=== PATIENT | male | born 1980 | race Caucasian/White ===

== ENCOUNTER 2017-10-21 11:38 | Emergency (ER) | payer SELFPAY ==
--- NOTE | 2017-10-21 11:43 | ER Report ---
History and Physical Time Seen By MD: 11:42 HPI/ROS CHIEF COMPLAINT: Chest pain and shortness of breath HISTORY OF PRESENT ILLNESS: This is a 37-year-old male who presents to the emergency department for chest pain and shortness of breath. 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 Patient states that he did retreat to a lower elevation, here in [place] at 7200 feet he does feel mildly better however he still has a headache, intermittent nausea with one episode of vomiting. Patient also states that he still has some left-sided chest discomfort more localized to the left side of the chest midaxillary, and also feels somewhat dyspneic more exertional. Patient denies fevers, chills, visual changes, dysuria or rashes. REVIEW OF SYSTEMS: Constitutional: No fever, no chills. Eyes: No discharge. ENT: No sore throat. Cardiovascular: As above. Respiratory: As above. Gastrointestinal: As above. Genitourinary: No hematuria. Musculoskeletal: No back pain. Skin: No rashes. Neurological: As above. Allergies: Coded Allergies: No Known Drug Allergies (Unverified , 10/21/17) Home Meds Reported Medications Hydrochlorothiazide (HYDROCHLOROTHIAZIDE) 25 Mg Tablet, 1 TAB PO QDAY, TAB 10/21/17 Past Medical/Surgical History The patient has a past medical and surgical history of migraines secondary to hypertension, hypertension, hypercholesterolemia, IBS, left arm fracture, left leg fracture, right collarbone fracture. Reviewed Nurses Notes: Yes Constitutional Vital Sign - Last 24 Hours 10/21/17 10/21/17 10/21/17 10/21/17 11:38 11:41 11:41 11:53 Temp 97.8 Pulse ??? 112 102 Resp 20 9 B/P (MAP) 152/115 152/115 (127) Pulse Ox 98 99 O2 Delivery Room Air 10/21/17 10/21/17 10/21/17 10/21/17 12:00 12:08 12:17 12:22 Pulse 97 ??? Resp 12 B/P (MAP) 164/113 (130) 150/94 (112) Pulse Ox 94 10/21/17 10/21/17 10/21/17 10/21/17 12:30 12:36 12:36 12:37 Pulse 71 82 Resp 16 10 B/P (MAP) 138/91 (107) Pulse Ox 95 100 O2 Delivery Room Air 10/21/17 10/21/17 10/21/17 10/21/17 12:42 12:45 12:52 13:00 Pulse 78 79 Resp 16 21 B/P (MAP) 146/102 (117) 142/93 (109) Pulse Ox 97 10/21/17 10/21/17 10/21/17 10/21/17 13:05 13:15 13:32 13:35 Pulse 84 76 Resp 14 25 B/P (MAP) 141/92 (108) 137/92 (107) Pulse Ox 97 97 10/21/17 10/21/17 10/21/17 10/21/17 13:45 13:50 14:00 14:05 Pulse 69 79 Resp 6 19 B/P (MAP) 130/90 (103) 131/89 (103) Pulse Ox 96 96 10/21/17 10/21/17 14:15 14:20 Pulse 98 Resp 15 B/P (MAP) 155/100 (118) Pulse Ox 99 Physical Exam General Appearance: The patient is alert, has no immediate need for airway protection and no signs of toxicity, appears mildly anxious. Eyes: Pupils equal and round no pallor or injection. ENT, Mouth: Mucous membranes are moist. Respiratory: There are no retractions, lungs are clear to auscultation. Cardiovascular: Regular rate and rhythm, no murmurs, clicks or rubs. Gastrointestinal: Abdomen is soft and non tender, no masses, bowel sounds normal. Neurological: Alert and oriented 4. Moving all extremities. Following all commands. No focal deficits. Cranial nerves II through XII intact. Skin: Warm and dry, no rashes. Hands are cold and clammy. Musculoskeletal: Neck is supple non tender. Extremities are nontender, nonswollen and have full range of motion. DIFFERENTIAL DIAGNOSIS: After history and physical exam differential diagnosis was considered for chest pain including but not limited to myocardial ischemia, pericarditis pulmonary embolus, chest wall pain, pleural inflammation and pulmonary infectious causes.shortness of breath including but not limited to pulmonary infectious process, COPD, asthma, pulmonary embolus and congestive heart failure. Medical Decision Making Data Points Result Diagram: 10/21/17 1150 10/21/17 1150 Laboratory Hematology Test 10/21/17 11:50 Red Blood Count 6.21 M/uL (4.00-5.60) Mean Corpuscular Volume 82.7 fL (80.0-96.0) Mean Corpuscular Hemoglobin 28.4 pg (26.0-33.0) Mean Corpuscular Hemoglobin Concent 34.4 g/dL (32.0-36.0) Red Cell Distribution Width 13.0 % (11.5-14.5) Mean Platelet Volume 7.6 fL (7.2-11.1) Neutrophils (%) (Auto) 78.0 % (39.4-72.5) Lymphocytes (%) (Auto) 15.6 % (17.6-49.6) Monocytes (%) (Auto) 5.7 % (4.1-12.4) Eosinophils (%) (Auto) 0.5 % (0.4-6.7) Basophils (%) (Auto) 0.2 % (0.3-1.4) Nucleated RBC Relative Count (auto) 0.1 /100WBC Neutrophils # (Auto) 9.3 K/uL (2.0-7.4) Lymphocytes # (Auto) 1.9 K/uL (1.3-3.6) Monocytes # (Auto) 0.7 K/uL (0.3-1.0) Eosinophils # (Auto) 0.1 K/uL (0.0-0.5) Basophils # (Auto) 0.0 K/uL (0.0-0.1) Nucleated RBC Absolute Count (auto) 0.01 K/uL D-Dimer Quantitative (PE/DVT) < 0.27 ug/ml (0-0.50) Sodium Level 142 mmol/L (137-145) Potassium Level 3.5 mmol/L (3.5-5.0) Chloride Level 103 mmol/L (98-107) Carbon Dioxide Level 25 mmol/L (22-30) Blood Urea Nitrogen 19 mg/dl (9-21) Creatinine 1.10 mg/dl (0.66-1.25) Glomerular Filtration Rate Calc > 60.0 Random Glucose 101 mg/dl (75-110) Calcium Level 9.8 mg/dl (8.4-10.2) Total Bilirubin 0.6 mg/dl (0.2-1.3) Aspartate Amino Transf (AST/SGOT) 35 U/L (0-35) Alanine Aminotransferase (ALT/SGPT) 44 U/L (0-56) Alkaline Phosphatase 95 U/L (0-126) Troponin I < 0.012 ng/ml B-Type Natriuretic Peptide < 5 pg/ml (0-100) Total Protein 7.9 gm/dl (6.3-8.2) Albumin 4.5 g/dl (3.5-5.0) Chemistry Test 10/21/17 11:50 White Blood Count 11.9 k/uL (4.5-11.0) Red Blood Count 6.21 M/uL (4.00-5.60) Hemoglobin 17.7 g/dL (14.0-18.0) Hematocrit 51.4 % (42.0-52.0) Mean Corpuscular Volume 82.7 fL (80.0-96.0) Mean Corpuscular Hemoglobin 28.4 pg (26.0-33.0) Mean Corpuscular Hemoglobin Concent 34.4 g/dL (32.0-36.0) Red Cell Distribution Width 13.0 % (11.5-14.5) Platelet Count 348 K/uL (150-450) Mean Platelet Volume 7.6 fL (7.2-11.1) Neutrophils (%) (Auto) 78.0 % (39.4-72.5) Lymphocytes (%) (Auto) 15.6 % (17.6-49.6) Monocytes (%) (Auto) 5.7 % (4.1-12.4) Eosinophils (%) (Auto) 0.5 % (0.4-6.7) Basophils (%) (Auto) 0.2 % (0.3-1.4) Nucleated RBC Relative Count (auto) 0.1 /100WBC Neutrophils # (Auto) 9.3 K/uL (2.0-7.4) Lymphocytes # (Auto) 1.9 K/uL (1.3-3.6) Monocytes # (Auto) 0.7 K/uL (0.3-1.0) Eosinophils # (Auto) 0.1 K/uL (0.0-0.5) Basophils # (Auto) 0.0 K/uL (0.0-0.1) Nucleated RBC Absolute Count (auto) 0.01 K/uL D-Dimer Quantitative (PE/DVT) < 0.27 ug/ml (0-0.50) Glomerular Filtration Rate Calc > 60.0 Calcium Level 9.8 mg/dl (8.4-10.2) Total Bilirubin 0.6 mg/dl (0.2-1.3) Aspartate Amino Transf (AST/SGOT) 35 U/L (0-35) Alanine Aminotransferase (ALT/SGPT) 44 U/L (0-56) Alkaline Phosphatase 95 U/L (0-126) Troponin I < 0.012 ng/ml B-Type Natriuretic Peptide < 5 pg/ml (0-100) Total Protein 7.9 gm/dl (6.3-8.2) Albumin 4.5 g/dl (3.5-5.0) Coagulation Test 10/21/17 11:50 D-Dimer Quantitative (PE/DVT) < 0.27 ug/ml EKG/Imaging EKG Interpretation 12 lead EKG: Time of EKG 1144. Rhythm: Sinus tachycardia, ventricular rate 104 bpm. [place]: normal QRS: normal ST segments: No ST depression or elevation identified. Imaging Location: [facility] - [place] Patient: Johnson Sotomayor : 1980 Visit/Account:[id number] Date of Sevice: 10/21/2017 CHEST PA AND LAT HISTORY: Chest pain. COMPARISON: None FINDINGS: Cardiomediastinal contours: The heart size is normal. Lungs and pleura: There is no finding of an infiltrate, lymphadenopathy or pleural effusion. Bones/soft tissues: There are no findings of a fracture. IMPRESSION: Normal chest x-ray without findings of acute disease. Report Dictated By: Rebel Hodge MD at 10/21/2017 12:47 PM Report E-Signed By: Rebel Hodge MD at 10/21/2017 12:47 PM WSN:[facility] ED Course/Re-evaluation Clinical Indication for ER IV: Hydration, IV Access ED Course The patient was admitted to room. Extremities were obtained. Differential diagnoses were considered. An IV was started. A CBC, CMP, d-dimer, troponin and BNP were obtained. Lab studies unremarkable, negative d-dimer, negative troponin , negative BNP. The patient was given a 1 L normal saline bolus. Try a 0.4 no change in the patient's symptoms. Did increase the patient's headache, after the lab studies came back to give the patient 30 mg IV Toradol which did seem to help with his discomfort, he was also given 25 mg IV Benadryl. Patient was also given 4 mg IV Zofran 2, 324 mg baby aspirin. Did trial a DuoNeb which did seem to provide some relief. 2 view chest x-ray was negative for any acute cardio pulmonary process. EKG sinus tachycardia no other abnormalities. I did review these results with the patient he was relieved with the lab studies the chest x-ray. The patient I talked about increasing the dose on his chlorothiazide from 1 tablet a day to the 1 tablet twice a day, the patient states he would rather wait to follow-up with his primary care provider when he returns to [place] on he said this is okay however. Come back for any other concerns he concerning to this. The patient had no other questions or concerns at this time and was discharged home. I also did tell the patient that the only real solution for altitude sickness is retreating to a lower elevation. Patient did express understanding. The patient's blood pressure did improve while in the emergency department, last blood pressure when I was in the room was 130/89. Heart rate around 90-95. Decision to Disposition Date: October 21, 2017 Decision to Disposition Time: 14:21 Depart Departure Latest Vital Signs Vital Signs Date Time Temp Pulse Resp B/P (MAP) Pulse Ox O2 Delivery O2 Flow Rate FiO2 10/21/17 14:20 98 15 99 10/21/17 14:15 155/100 (118) 10/21/17 12:36 Room Air 10/21/17 11:41 97.8 Impression: Primary Impression: Hypertension Additional Impression: Altitude sickness Condition: Improved Disposition: HOME OR SELF-CARE Patient Instructions: Hypertension (ED), Mountain Sickness (ED) Additional Instructions: Drink plenty of fluids. Get plenty of rest. Continue taking your hydrochlorothiazide as directed. Be sure to follow-up with your primary care provider when he returns to [place]. I do believe that there is a mountain sickness components here or hypertension therefore retreating to a lower elevation is recommended. Considered talking to your primary care provider about alternatives to hydrochlorothiazide. If you need to return to the emergency department before he returned to [place] for any other concerns or worsening symptoms please do so. Problem Qualifiers Primary Impression: Hypertension Hypertension type: essential hypertension Qualified Codes: I10 - Essential ( primary) hypertension Additional Impression: Altitude sickness Encounter type: initial encounter Qualified Codes: T70.29XA - Other effects of high altitude, initial encounter CHERIE JOLLY- October 21, 2017 11:43
[2017-10-21] MEDS ORDERED: HYDR-2966 PO (11:45)
[2017-10-21] MEDS ORDERED: NS(*) 0.9% 1000 ML BAG 1,000 ML IV ONE (12:02)
[2017-10-21] MEDS ORDERED: NITROGLYCERIN 0.4 MG SUBL SL ONE (12:05)
[2017-10-21] MEDS ORDERED: ONDANSETRON 4 MG/2 ML VIAL IVP ONE ×2 (12:05→13:20)
[2017-10-21] MEDS ORDERED: ASPIRIN 81 MG CHEW PO ONE (12:05)
[2017-10-21 12:12] LABS: PLATELET COUNT, AUTOMATED 348 K/uL (150-450)
[2017-10-21] MEDS ORDERED: ALBUTEROL/IPRATROPIUM 3 ML NEB NEB ONE (12:35)
[2017-10-21] MEDS ORDERED: KETOROLAC 30 MG/ML VIAL IVP ONE (12:45)
--- NOTE | 2017-10-21 12:52 | RADIOLOGY IMAGING REPORT ---
FACILITY: [facility] [place] PATIENT NAME: Johnson Sotomayor : 1980 MR: [id number] V: [id number] EXAM DATE: ORDERING PHYSICIAN: CHERIE JOLLY TECHNOLOGIST: Location: [facility] - [place] Patient: Johnson Sotomayor : 1980 Visit/Account:[id number] Date of Sevice: 10/21/2017 CHEST PA AND LAT HISTORY: Chest pain. COMPARISON: None FINDINGS: Cardiomediastinal contours: The heart size is normal. Lungs and pleura: There is no finding of an infiltrate, lymphadenopathy or pleural effusion. Bones/soft tissues: There are no findings of a fracture. IMPRESSION: Normal chest x-ray without findings of acute disease. Report Dictated By: Rebel Hodge MD at 10/21/2017 12:47 PM Report E-Signed By: Rebel Hodge MD at 10/21/2017 12:47 PM WSN:DARLENE
[2017-10-21] MEDS ORDERED: diphenhydrAMINE 50 MG/ML VIAL IVP ONE (13:20)
[2017-10-21 14:15] VITALS: BP 155/100
--- NOTE | 2017-10-21 14:51 | EKG ---
FACILITY: [facility] - [place] PATIENT NAME: VICTORINA STEINBERG : [id number] MR: [id number] V: [id number] EXAM DATE: ORDERING PHYSICIAN: CHERIE JOLLY TECHNOLOGIST: FABIANO Valentino Reason : SOB Blood Pressure : / mmHG Vent. Rate : 104 BPM Atrial Rate : 104 BPM P-R Int : 146 ms QRS Dur : 084 ms QT Int : 334 ms P-R-T Axes : 077 069 043 degrees QTc Int : 439 ms Sinus tachycardia Otherwise normal ECG No previous ECGs available Confirmed by BAHMAN CLAYTON ([id number]) on 10/21/2017 6:37:44 PM Referred By: Confirmed By:BAHMAN CLAYTON
== END 2017-10-21 14:35 | disposition home or self-care (01) ==
LOC: ER 11:38
DX: T70.29XA Other effects of high altitude, initial encounter (principal); I10 Essential (primary) hypertension
CPT/HCPCS: 71046; 83880; 84484; 85025; 85379; 93005; 94640; 96361; 96374; 96375; 96376; 99284; J1200; J1885; J2405; J7030; J7620; 82040; 82247; 82310; 82374; 82435; 82565; 82947; 84075; 84132; 84155; 84295; 84450; 84460; 84520